=== PATIENT | male | born 1980 | race Caucasian/White ===

== ENCOUNTER 2025-11-14 13:27 | Emergency (ER) | payer OTHER ==
[~2025-11-14] VITALS: Ht 188 cm; Wt 182.8 kg
--- NOTE | 2025-11-14 14:16 | ERN ---
General Chief Complaint: Finger Injury Stated Complaint: LT INDEX FINGER INJURY Time Seen by MD: 13:30 Source: patient History of Present Illness Initial Comments Patient is a 45-year-old male coming in complaining of left hand 4th digit injury. Per patient he is squished in his left finger 4th digit in his here for further evaluation. He does not recall when his last tetanus was. Allergies: Coded Allergies: bee venom protein (honey bee) (Unverified Allergy, Unknown, 11/14/25) Past Medical History Past Medical History: Hypertension Past Surgical History: None ROS Dictation CONSTITUTIONAL: No chills, no fever, no weakness, no diaphoresis, no malaise. HEAD/FACE: No signs of trauma. EENT: No eye pain, no blurred vision, no tearing, no double vision, no ear pain, no ear discharge, no nose pain, no nasal congestion, no throat pain, no throat swelling, no mouth pain. RESPIRATORY: No cough, no orthopnea, no SOB, no stridor, no wheezing. CARDIOVASCULAR: No chest pain, no edema, no palpitations, no syncope. GASTROINTESTINAL/ABDOMINAL: No abdominal pain, no constipation, no diarrhea, no nausea, no vomiting. GENITOURINARY: No abnormal discharge, no dysuria, no frequent urination, no hematuria. No complaints of pain in the genitals. MUSCULOSKELETAL: No back pain, no gout, no joint pain, no joint swelling, no muscle pain, no muscle stiffness, no neck pain. INTEGUMENTARY: No change in color, no change in hair/nails, no dryness, lesion, no lumps, no rash. NEUROLOGICAL/PSYCH: No anxiety, not depressed, no emotional problem, no headache, no numbness, no pre-existing deficit, no history of seizures, no tremors, no weakness. HEMATOLOGIC/LYMPHATIC: Not anemic, no history of blood clots, no apparent bleeding, no bruising, glands not swollen. All Systems Negative, Except as Noted. Physical Exam Physical Exam Dictation VITAL SIGNS: Reviewed. GENERAL APPEARANCE: Alert, oriented x3, no acute distress, obese. HEAD AND FACE: Non-traumatic. EYES: PERRL, pink conjunctivas, eyelid no trauma, anterior chamber clear. EARS: Pinnas intact and no signs of trauma or erythema. Ear canals clear and no discharge. TMs no erythema. NOSE: No discharge, no bleeding. OROPHARYNX: Mouth normal, teeth no caries, tongue pink. Pharynx clear, no erythema. Tonsils no exudates, no abscesses noted. Mucous membrane moist. NECK: Supple, non-tender, no thyromegaly, no masses, no JVD, no bruits. BREAST: Deferred. CHEST: No tenderness, no crepitus, no paradoxical movement, no retractions. LUNGS: Clear, well-ventilated, symmetric, no rales, no wheezing, no rhonchi, no stridor, good breath sounds bilaterally. HEART: Regular rate, regular rhythm, no murmur, no gallops. VASCULAR: No peripheral edema. ABDOMEN: Soft, positive bowel sounds, nondistended, no guarding, nontender, no rebound, no masses no hepatomegaly, no splenomegaly, no Pereira's sign, no hernias. RECTAL: Deferred. GENITAL: Deferred. NEUROLOGICAL: Normal speech, gross motor function intact, gross sensory function intact. MUSCULOSKELETAL: Neck nontender, full range of motion, back nontender, full range of motion. EXTREMITIES: Nontender, full range of motion. SKIN: Color pink, dry, no turgor, no rash, left hand 4th digit distal laceration, 3 cm laceration U shaped LYMPHATICS: Deferred. In his Results Laboratory and Microbiology Labs Reviewed?: Yes EKG/XRAY/US/CT/MRI X-RAY Comment X-ray left hand 4th digit- nad MDM MDM: Differential diagnosis: Finger injury, finger laceration, Rationale: Tests considered and ordered secondary to shared decision making include: Previous outside records reviewed: Old ER visits. Risk of complication and/or morbidity or mortality of patient management: None Medications-Per medication reconciliation Need for hospitalization: Patient does not meet criteria for hospitalization. Need for emergency major/minor surgery: No Patient is a 45-year-old gentleman coming in after he had a injury to his left hand 4th digit. He had switched his left hand 4th digit laceration 3 cm U shaped was fixed using sutures 3-0 x5. Patient tolerated procedure well. ED Course Orders Procedure Category Date Status Time Finger(S) 2+Vws Lt RAD 11/14/25 Taken 13:41 Tetanus,Diphtheria PHA 11/14/25 Complete Tox [Adult] (Diphther 14:00 Current Medications Medications (Trade) Dose Ordered Sig/Catracho Route PRN Reason Start Time Stop Time Status Last Admin Dose Admin Tetanus/ Diphtheria Toxoids Adsorbed (DiphthERIA-teTANUS TOXOID [ADULT]/ DECAVAC) 0.5 ml ONCE ONCE IM 11/14/25 14:00 11/14/25 14:01 DC Vital Signs Date Time Temp Pulse Resp B/P (MAP) Pulse Ox O2 Delivery O2 Flow Rate FiO2 11/14/25 13:28 98.1 82 20 178/98 20 Room Air Laceration/Wound Repair Laceration/Wound Repair : Wound Location: upper extremity Wound Length (cm): 3 Wound's Depth, Shape: superficial Wound Explored: clean Irrigated w/ Saline (ccs): 100 Anesthesia: 1% Lidocaine Volume Anesthetic (ccs): 5 Wound Debrided: minimal Wound Repaired With: sutures Suture Size/Type: 3:0 Number of Sutures: 5 DX & DISP Disposition: Discharge Departure Impression: Primary Impression: Finger injury Additional Impression: Laceration of finger Condition: Stable Scripts Cephalexin Monohydrate (Keflex) 500 Mg Cap 1 CAP PO TID for 10 Days, #30 CAP 0 Refills Prov: LESLIE GAXIOLA MD 11/14/25 Additional Instructions: FOLLOW-UP WITH PRIMARY CARE PROVIDER IN 1 TO 2 DAYS. TAKE MEDICATIONS DIRECTED HERE IN THE EMERGENCY ROOM. OKAY TO CONTINUE HOME MEDICATIONS UNLESS OTHERWISE DISCUSSED DURING YOUR VISIT IN THE EMERGENCY ROOM TODAY. RETURN TO YOUR NEAREST EMERGENCY ROOM IF SYMPTOMS WORSEN OR IF THERE IS NO IMPROVEMENT. CALL 911 IF YOU NEED IMMEDIATE ASSISTANCE. TAKE TYLENOL [id number] NEEDED AND IF NO CONTRAINDICATIONS ARE PRESENT. INCREASE ORAL HYDRATION. A WOUND CULTURE OR URINE CULTURE WAS ORDERED HERE IN THE EMERGENCY ROOM DEPARTMENT PLEASE FOLLOW-UP WITH PRIMARY CARE PROVIDER AND ADVISE THEM TO GET REPORTS FROM OUR FACILITY. IF YOU HAD ANY KRISTI WRAP/SPLINTS THAT WERE APPLIED HERE, PLEASE DO NOT REMOVE THEM UNTIL YOU SEE YOUR PRIMARY CARE OR SPECIALTY. Referrals: Time of Disposition: 14:23 LESLIE GAXIOLA MD Nov 14, 2025 14:16
[2025-11-14] MEDS ORDERED: CEPH500B PO (14:24)
--- NOTE | 2025-11-14 14:40 | NUR ---
PT BEDDED AT THIS TIME FROM [facility]
--- NOTE | 2025-11-14 15:16 | HMCIMG ---
STUDY CR right finger, 3 view HISTORY Left fourth digit finger injury TECHNIQUE Three-view radiographic examination of the right finger COMPARISON None provided FINDINGS Bones No acute fracture or cortical disruption is identified. No aggressive-appearing osseous lesion is seen. Joints Joint spaces are preserved with normal alignment. No dislocation is present. Soft tissues There is soft tissue swelling of the examined digit with a few tiny approximately 1 mm hyperdense subcutaneous foci, compatible with small radiopaque foreign bodies. No soft tissue gas is identified. IMPRESSION * Soft tissue swelling of the examined finger with a few tiny radiopaque subcutaneous foci, consistent with small foreign bodies in the appropriate clinical setting. * No acute fracture or dislocation identified. /[place]
[2025-11-14 15:25] VITALS: BP 165/76; PULSE 80; RESP 18; TEMP 98; O2SAT 100
== END 2025-11-14 15:25 | disposition home or self-care (01) ==
LOC: EDH 13:27
DX: S61.215A Laceration without foreign body of left ring finger without damage to nail, initial encounter (principal); I10 Essential (primary) hypertension; Z91.030 Bee allergy status; W20.8XXA Other cause of strike by thrown, projected or falling object, initial encounter; Y93.89 Activity, other specified; Y92.89 Other specified places as the place of occurrence of the external cause; Y99.0 Civilian activity done for income or pay
CPT/HCPCS: 12002; 73140; 90471; 90714; 99283